=== PATIENT | male | born 1985 | race Caucasian/White ===

== ENCOUNTER 2025-06-25 13:07 | Inpatient (IN) | payer BC, OTHER ==
[~2025-06-25] VITALS: Ht 175.3 cm; Wt 98.0 kg
--- NOTE | 2025-06-25 13:56 | ED.PDOC ---
HPI (NEURO) HPI Comments This is a 40 year old male presenting to the ED with chief complaint of dizziness. Patient reports that while at work he has been experiencing dizziness with associated lightheadedness after doing physical activity at work for a few minutes before resolving. Patient relays that he has had multiple episodes while at work previously on other days. Patient notes his work wanted him to come in to be checked. Patient denies any numbness, weakness, tingling, chest pain, headache, or syncope. Chief Complaint: Dizziness Time Seen by MD: 13:56 Primary Care Provider: RUDY Reviewed Notes: Nurses Notes, Medications, Allergies Information Source: Patient Mode of Arrival: Ambulatory Severity: Moderate Dizziness/Weakness Severity: Does not affect activitie Timing: Hours Duration: Minutes Prehospital treatment: None Onset: At rest Circumstances: Spontaneous Symptoms: Faintness, Near syncope Before: Normal Past Medical History PAST MEDICAL HISTORY: Depression Surgical History: Denies all surgeries Family History Family History: Reviewed,noncontributory to illness, Unknown Social History Smoker: Cigarettes Alcohol: Occasionally Drugs: Denies Drug Use Lives In: Home Constitutional: denies: chills, diaphoresis, fatigue, fever, malaise, sweats, weakness, others EENTM: denies: blurred vision, double vision, ear bleeding, ear discharge, ear drainage, ear pain, ear ringing, eye pain, eye redness, hearing loss, mouth pain, mouth swelling, nasal discharge, nose bleeding, nose congestion, nose pain, photophobia, tearing, throat pain, throat swelling, voice changes, others Respiratory: denies: cough, hemoptysis, orthopnea, SOB at rest, shortness of breath, SOB with excertion, stridor, wheezing, others Cardiovascular: reports: lightheadedness; denies: chest pain, dizzy spells, diaphoresis, Dyspnea on exertion, edema, irregular heart beat, left arm pain, palpitations, PND, syncope, others Gastrointestinal: denies: abdomen distended, abdominal pain, blood streaked bowels, constipated, diarrhea, dysphagia, difficulty swallowing, hematemesis, melena, nausea, poor appetite, poor fluid intake, rectal bleeding, rectal pain, vomiting, others Genitourinary: denies: burning, dysuria, flank pain, frequency, hematuria, incontinence, penile discharge, penile sore, pain, testicle pain, testicle swelling, urgency, others Neurological: reports: dizziness; denies: fainting, headache, left sided numbness, left sided weakness, numbness, paresthesia, pre-existing deficit, right sided numbness, right sided weakness, seizure, speech problems, tingling, tremors, weakness, others Musculoskeletal: denies: back pain, gout, joint pain, joint swelling, muscle pain, muscle stiffness, neck pain, others Integumetry: denies: bruises, change in color, change in hair/nails, dryness, laceration, lesions, lumps, rash, wounds, others Allergic/Immunocompromised: denies: Difficulty Healing, Frequent Infections, Hives, Itching, others Hematologic/Lymphatic: denies: anemia, blood clots, easy bleeding, easy bruising, swollen glands, others Endocrine: denies: excessive hunger, excessive sweating, excessive thirst, excessive urination, flushing, intolerance to cold, intolerance to heat, unexplained weight gain, unexplained weight loss, others Psychiatric: denies: anxiety, bipolar disorder, depression, hopeless, panic disorder, schizophrenia, sleepless, suicidal, others All Other Systems: Reviewed and Negative Physical Exam General Appearance: No Apparent Distress, Normal HEENT: Normal ENT Inspection, Pharynx Normal, TMs Normal Neck: Full Range of Motion, Non-Tender, Normal, Normal Inspection Respiratory: Chest Non-Tender, Lungs Clear, No Accessory Muscle Use, No Respiratory Distress, Normal Breath Sounds Cardiovascular: No Edema, No JVD, No Murmur, No Gallop, Normal Peripheral Pulses, Regular Rate/Rhythm Breast Exam: Deferred Gastrointestinal: No Organomegaly, Non Tender, No Pulsatile Mass, Normal Bowel Sounds, Soft Genitalia: Deferred Pelvic: Deferred Rectal: Deferred Extremities: No calf tenderness, Normal capillary refill, Normal inspection, Normal range of motion, Non-tender, No pedal edema Musculoskeletal : Apperance: Normal Neurologic: Alert, artist representative II-XII nml as Tested, No Motor Deficits, Normal Affect, Normal Mood, No Sensory Deficits Cerebellar Function: Normal Reflexes: Normal Skin: Dry, Normal Color, Warm Lymphatic: No Adenopathy Was a procedure done? Was a procedure done?: No Differential Diagnosis (SZ) Seizure: Hyperventilation, CVA/TIA, Hypocalcemia, Hypoglycemia, Hyponatremia, Hypoxemia, Syncope, Epilepsy-Break Through, Epilepsy-Status CVA: Drug Overdose, Electrolyte Imbalance, Hypoglycemia, Hypoxemia General Weakness: Anemia, Dehydration, Electrolyte imbalance, Hypotension, TIA X-Ray, Labs, Meds, VS Vital Signs Date Time Temp Pulse Resp B/P (MAP) Pulse Ox O2 Delivery O2 Flow Rate FiO2 06/25/25 14:42 Room Air* 0 21 06/25/25 13:17 119 06/25/25 13:09 97.8 120 18 154/94 96 97.8 Lab Test 06/25/25 17:00 06/25/25 13:59 Range/Units Lactic Acid Level 2.9 *H 0.4-2.0 mmol/L White Blood Count 14.0 H 4.4-10.8 10^3/uL Red Blood Count 4.99 4.5-5.90 10^6/uL Hemoglobin 16.0 13.5-17.5 g/dL Hematocrit 45.2 41.0-53.0 % Mean Corpuscular Volume 90.5 80.0-100.0 fL Mean Corpuscular Hemoglobin 32.0 28.0-32.0 pg Mean Corpuscular Hemoglobin Concent 35.3 32.0-36.0 g/dL Red Cell Distribution Width 13.0 11.8-14.3 % Platelet Count 281 140-450 10^3/uL Mean Platelet Volume 8.8 6.9-10.8 fL Neutrophils (%) (Auto) 83.1 H 37.0-80.0 % Lymphocytes (%) (Auto) 10.7 10.0-50.0 % Monocytes (%) (Auto) 5.5 0.0-12.0 % Eosinophils (%) (Auto) 0.2 0.0-7.0 % Basophils (%) (Auto) 0.5 0.0-2.0 % Neutrophils # (Auto) 11.7 H 1.6-8.6 10 ^3/uL Lymphocytes # (Auto) 1.5 0.4-5.4 10 ^3/uL Monocytes # (Auto) 0.8 0-1.3 10 ^3/uL Eosinophils # (Auto) 0 0-0.8 10 ^3/uL Basophils # (Auto) 0.1 0-0.2 10 ^3/uL Nucleated Red Blood Cells 0.1 % Sodium Level 139 136-145 mmol/L Potassium Level 4.0 3.5-5.1 mmol/L Chloride Level 106 98-107 mmol/L Carbon Dioxide Level 24 20-31 mmol/L Anion Gap 9 5-15 Blood Urea Nitrogen 7 L 9-23 mg/dL Creatinine 0.99 0.700-1.30 mg/dL Glomerular Filtration Rate Calc 99 >90 mL/min BUN/Creatinine Ratio 7.1 L 10.0-20.0 Serum Glucose 91 74-106 mg/dL Calcium Level 9.5 8.7-10.4 mg/dL Plasma/Serum Blood Alcohol 4.4 <10 mg/dL Current Medications Medications (Trade) Dose Ordered Sig/Sara Route Start Time Stop Time Status Last Admin Lactated Ringer's 2,100 ml @ 2,100 mls/hr ONCE ONCE IV 06/25/25 16:45 06/25/25 17:44 DC 06/25/25 17:04 Cefepime HCl 50 ml @ 50 mls/hr ONCE ONCE IV 06/25/25 16:49 06/25/25 17:48 DC 06/25/25 17:04 Time of 1ST Reevaluation: 14:55 Reevaluation 1ST: Unchanged Patient Education/Counseling: Diagnosis, Treatment, Prognosis, Need For Follow Up Family Education/Counseling: No Family Present Departure 1 Departure Time of Disposition: 19:52 Impression: Primary Impression: Pneumonia Additional Impression: Sepsis Disposition: 09 ADMITTED INPATIENT Admit to: Tele Condition: Serious Discharged With: Self Critical Care Note Critical Care Time?: Yes (55 min-critical care time only) Critical care comment: due to concerns for patient's condition deteriorating, the care required my highest level of attention and readiness to intervene. i assessed the patient's condition, ordered the proper tests and treatments, reassessed for response and reviewed the results. i communicated with medical personnel and formulated a plan of care. total critical care time does not include any procedures Stability Stability form required: No Heart Score Heart Score: Heart Score Response (Comments) Value History N/A 0 EKG N/A 0 Age N/A 0 Risk Factors N/A 0 Troponin N/A 0 Total 0 I personally scribed for MILI REHMAN MD ([email or web address]) on 06/25/25 at 13:56. Electronically submitted by Naren Villa ([email or web address]). MILI REHMAN MD Jun 25, 2025 13:56
[2025-06-25 14:11] LABS: Hematocrit 45.2 % (41.0-53.0); Hemoglobin 16.0 g/dL (13.5-17.5); Mean Corpuscular Hemoglobin 32.0 pg (28.0-32.0); Mean Corpuscular Volume 90.5 fL (80.0-100.0); Nucleated Red Blood Cells % 0.1 %
[2025-06-25 14:18] LABS: Chloride 106 mmol/L (98-107); Potassium 4.0 mmol/L (3.5-5.1); Sodium 139 mmol/L (136-145)
[2025-06-25 14:19] LABS: Anion Gap 9 (5-15); Calcium 9.5 mg/dL (8.7-10.4); Carbon Dioxide 24 mmol/L (20-31)
[2025-06-25 14:24] LABS: BUN/Creatinine Ratio 7.1 (10.0-20.0); Glucose 91 mg/dL (74-106)
[2025-06-25 14:27] LABS: Blood Urea Nitrogen 7 mg/dL (9-23)
--- NOTE | 2025-06-25 16:06 | DVH ---
CHEST RADIOGRAPH Indication: dizziness Technique: XY CHEST XRAY 1 VIEW Comparison: None FINDINGS: The cardiac silhouette is unremarkable. The lungs demonstrate left basilar airspace opacities. The pu lmonary vasculature is prominent. There is no pleural effusion. There is no pneumothorax. IMPRESSION: Mild pulmonary vascular congestion. Left basilar airspace opacities
[2025-06-25] MEDS: CEFEPIME 1GM/50ML 50 ML IV ONE (17:04)
[2025-06-25] MEDS: LACTATED RINGER'S 2,100 ML IV ONE (17:04)
[2025-06-25] MEDS: LACTATED RINGER'S 1,000 ML IV SCH (17:15)
[2025-06-25] MEDS ORDERED: VANCOMYCIN 1GM/250ML KIT 250 ML IV SCH (17:15)
--- NOTE | 2025-06-25 17:52 | DVHHPRES ---
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 Patient denied any recent history of fever, chills, abdominal pain, diarrhea, nausea or vomiting. He reported that in the last month he has had similar episode about 2 times but did not seek any medical attention. Patient did not report to be feeling any sensory or motor weakness at that time and denied headache, blurred vision, slurred speech, facial numbness or weakness, tinnitus, spinning sensation. Patient then came to the ER for further evaluation. On arrival to the ER patient was noted to be tachycardic and initial labs showed elevated white count with left shift. Past medical history: None Surgical history: None Social history: Patient reports drinking once a week and smokes about 10-15 cigarettes per day for the last 25 years, no drug use Home medications: None Review of Systems Review of Systems Patient seen and examined at the bedside Does not report of any dizziness while being examined, no blurred vision, no motor or sensory weakness, no facial weakness Reported that he has noticed an abscess in his middle back area which has recently grown a little in size Allergies: Coded Allergies: NO KNOWN ALLERGIES (Unverified , 03/24/10) Medications Current Medications Medications Dose Ordered Sig/Sara Route Start Time Stop Time Status Last Admin Dose Admin Cefepime HCl 50 ml @ 12.5 mls/hr Q8H IV 06/26/25 01:00 Exam Vital Signs Vital Signs Date Time Temp Pulse Resp B/P (MAP) Pulse Ox O2 Delivery O2 Flow Rate FiO2 06/25/25 14:42 Room Air* 0 21 06/25/25 13:17 119 06/25/25 13:09 97.8 18 154/94 96 97.8 Exam Gen - no pallor, no icterus, no cyanosis, no peripheral edema . Skin - Patients skin is warm and dry. 3 X 3 cm area of fluctuant mass palpated in the upper middle back with the overlying erythema, no tenderness HEENT - normocephalic, atraumatic, dry mucous membranes. Neck - full ROM, no LAD, no JVD Pulmonary - B/L equal breath sounds, no crackles, no wheezing, no stridor. cardiovascular - regular S1,S2 heard, no added sounds, no murmurs heard. GI - soft, nontender abdomen. no hepatospleenomegaly. Bowel sounds normoactive Neurological - Patient is A/O X 3 . Bilateral upper extremity strength 5/5, bilateral lower extremity strength 5/5, no facial droop, normal speech, no tremor, no sensory deficiets. Labs/Xrays Labs Test 06/25/25 17:00 06/25/25 13:59 Range/Units White Blood Count 14.0 H 4.4-10.8 10^3/uL Red Blood Count 4.99 4.5-5.90 10^6/uL Hemoglobin 16.0 13.5-17.5 g/dL Hematocrit 45.2 41.0-53.0 % Mean Corpuscular Volume 90.5 80.0-100.0 fL Mean Corpuscular Hemoglobin 32.0 28.0-32.0 pg Mean Corpuscular Hemoglobin Concent 35.3 32.0-36.0 g/dL Red Cell Distribution Width 13.0 11.8-14.3 % Platelet Count 281 140-450 10^3/uL Mean Platelet Volume 8.8 6.9-10.8 fL Neutrophils (%) (Auto) 83.1 H 37.0-80.0 % Lymphocytes (%) (Auto) 10.7 10.0-50.0 % Monocytes (%) (Auto) 5.5 0.0-12.0 % Eosinophils (%) (Auto) 0.2 0.0-7.0 % Basophils (%) (Auto) 0.5 0.0-2.0 % Neutrophils # (Auto) 11.7 H 1.6-8.6 10 ^3/uL Lymphocytes # (Auto) 1.5 0.4-5.4 10 ^3/uL Monocytes # (Auto) 0.8 0-1.3 10 ^3/uL Eosinophils # (Auto) 0 0-0.8 10 ^3/uL Basophils # (Auto) 0.1 0-0.2 10 ^3/uL Nucleated Red Blood Cells 0.1 % Sodium Level 139 136-145 mmol/L Potassium Level 4.0 3.5-5.1 mmol/L Chloride Level 106 98-107 mmol/L Carbon Dioxide Level 24 20-31 mmol/L Anion Gap 9 5-15 Blood Urea Nitrogen 7 L 9-23 mg/dL Creatinine 0.99 0.700-1.30 mg/dL Glomerular Filtration Rate Calc 99 >90 mL/min BUN/Creatinine Ratio 7.1 L 10.0-20.0 Serum Glucose 91 74-106 mg/dL Calcium Level 9.5 8.7-10.4 mg/dL Plasma/Serum Blood Alcohol 4.4 <10 mg/dL SEPSIS Sepsis Screen Date sepsis recognized/suspect: Jun 25, 2025 Time Sepsis recognized/suspect: 1308 Recent Procedure: No On Antibiotic Therapy: No Respiratory Rate >20: No Heart Rate >90: Yes Temp<36 C (96.8 F) or >38.3 C: No SBP <90 or MAP <65 mmHG: No New Acute Mental Status Change: No Is the patient on CPAP, BIPAP,: No Physician Orders Electrocardigram (06/25/25 13:24) Chest Xray 1 View (06/25/25 15:35) Drug Screen (06/25/25 15:35) Urinalysis (06/25/25 16:43) Accucheck (06/25/25 16:43) Lactated Ringer's (06/25/25 16:45) Blood Culture (06/25/25 16:43) Lactic Acid W/ Reflex Order (06/25/25 18:00) Lactic Acid W/ Reflex Order (06/25/25 20:00) Notify Md If Map <65 Or Bp<90 (06/25/25 16:43) If Map<65 Start Vasopressor (06/25/25 16:43) Sepsis Reassesment After Fluid (06/25/25 17:43) Cefepime 1gm/50ml (Maxipime 1gm/50ml) (06/25/25 16:49) Cefepime 1gm/50ml (Maxipime 1gm/50ml) (06/26/25 01:00) Admit (06/25/25 17:07) Oxygen By Nasal Cannula (06/25/25 17:07) Stat Ekg For Chest Pain (06/25/25 17:07) Notify Md Of Changes From Base (06/25/25 17:07) Urinalysis (06/25/25 17:07) Drug Screen (06/25/25 17:07) Vancomycin (06/25/25 17:15) Vancomycin (06/26/25 09:00) Vital Signs Date Time Temp Pulse Resp B/P (MAP) Pulse Ox O2 Delivery O2 Flow Rate FiO2 06/25/25 14:42 Room Air* 0 21 06/25/25 13:17 119 06/25/25 13:09 97.8 120 18 154/94 96 97.8 Laboratory Tests Test 06/25/25 13:59 06/25/25 17:00 White Blood Count 14.0 10^3/uL (4.4-10.8) H Lactic Acid Level Pending Medications Medications Dose Ordered Sig/Sara Route Start Time Stop Time Status Last Admin Dose Admin Cefepime HCl 50 ml @ 50 mls/hr ONCE ONCE IV 06/25/25 16:49 06/25/25 17:48 06/25/25 17:04 50 MLS/HR Lactated Ringer's 2,100 ml @ 2,100 mls/hr ONCE ONCE IV 06/25/25 16:45 06/25/25 17:44 06/25/25 17:04 2,100 MLS/HR Assessment/Plan Assessment/Plan Dizziness likely from dehydration/sepsis Sepsis likely due to skin abscess - IV antibiotics vancomycin and cefepime - IV fluid - blood cultures - monitor CBC - lactic acid Chronic tobacco use - counseled on cessation of smoking for more than 15 minutes PUD prophylaxis: Protonix Goals of care discussed with the patient for over 23 minutes. Full code Time spent: 41 minutes Plan discussed with Dr. Agudelo Plan discussed with: Patient, Other (RN Claudio) My Orders Orders - SHANIQUA MARKS RESIDENT Procedure Category Date Status Time Admit ADMIT 06/25/25 Verified 17:07 Oxygen By Nasal RT 06/25/25 Verified Cannula 17:07 Stat Ekg For Chest DESTINEE 06/25/25 Verified Pain 17:07 Notify Of Changes DESTINEE 06/25/25 Verified From Base 17:07 Urinalysis LAB 06/25/25 Verified 17:07 Drug Screen LAB 06/25/25 Verified 17:07 Vancomycin PHA 06/25/25 Verified 17:15 Vancomycin PHA 06/26/25 Verified 09:00 Date of Service: Jun 25, 2025 Billing Provider: POPEYE AGUEDLO MD Common Visit Codes: [id number] INP/OBS CARE (HIGH) Secondary Visit Codes: [id number] CARE PLAN 30 MINUTES SHANIQUA MARKS RESIDENT Jun 25, 2025 17:52
[2025-06-25 18:29] LABS: Lactic Acid w/Reflex 2.9 mmol/L (0.4-2.0)
[2025-06-25] MEDS: PANTOPRAZOLE 40 MG TAB PO ONE (19:51)
[2025-06-25 20:12] LABS: COVID19 ANTIGEN SOFIA FIA NEGATIVE (NEGATIVE)
--- NOTE | 2025-06-25 20:43 | ECG ---
[facility], [place] Test Date: 2025-06-25 Test Time: 13:17:03 Pat Name: RUI HUTCHINSON Department: Room: [address] [place] [address] Gender: M Clay Modeler: RADHA : 1985 Requested By: MILI REHMAN Order Number: [id number] Reading MD: Measurements Intervals [place] Rate: 119 P: 63 CO: 186 QRS: 86 QRSD: 92 T: -63 QT: 306 QTc: 431 Interpretive Statements Sinus tachycardia Probable left atrial enlargement Borderline repolarization abnormality Please click the below link to view image of tracing.
[2025-06-25 22:02] VITALS: BP 127/90; PULSE 89; RESP 18; RESP 20; TEMP 98; O2SAT 98
[2025-06-25 22:12] VITALS: BP 127/90; PULSE 89; RESP 20; TEMP 98.6; O2SAT 98
[2025-06-25] MEDS: VANCOMYCIN 1GM/250ML KIT 250 ML IV SCH (23:00)
[2025-06-26 01:00] VITALS: BP 130/89; PULSE 80; RESP 18; TEMP 98.4; O2SAT 99
[2025-06-26] MEDS: CEFEPIME 1GM/50ML 50 ML IV SCH (01:18)
[2025-06-26 05:00] VITALS: BP 120/71; PULSE 85; RESP 18; TEMP 98.8; O2SAT 97
[2025-06-26] MEDS: PANTOPRAZOLE 40 MG TAB PO SCH (06:45)
[2025-06-26 07:18] LABS: Hematocrit 42.4 % (41.0-53.0); Hemoglobin 15.0 g/dL (13.5-17.5); Mean Corpuscular Hemoglobin 32.2 pg (28.0-32.0); Mean Corpuscular Volume 91.0 fL (80.0-100.0); Nucleated Red Blood Cells % 0.2 %
[2025-06-26 08:00] VITALS: BP 94/58; PULSE 84; RESP 16; TEMP 97.8; O2SAT 96
[2025-06-26 08:49] LABS: Alanine Aminotransferase 25 U/L (7-40); Albumin 4.0 g/dL (3.2-4.8); Alkaline Phosphatase 102 U/L (46-116); Anion Gap 10 (5-15); BUN/Creatinine Ratio 8.8 (10.0-20.0); Blood Urea Nitrogen 8 mg/dL (9-23); Calcium 8.8 mg/dL (8.7-10.4); Carbon Dioxide 23 mmol/L (20-31); Chloride 111 mmol/L (98-107); Glucose 88 mg/dL (74-106); Potassium 4.2 mmol/L (3.5-5.1); Sodium 144 mmol/L (136-145); Total Protein 6.5 g/dL (5.7-8.2)
[2025-06-26 08:50] LABS: Bilirubin, Total 0.4 mg/dL (0.2-1.0)
[2025-06-26] MEDS ORDERED: VANCOMYCIN PER PHARMACY 0 MG IV SCH (09:00)
[2025-06-26 13:30] VITALS: BP 128/82; PULSE 85; RESP 16; TEMP 97.8; O2SAT 96
--- NOTE | 2025-06-26 18:53 | DVHDSRES ---
Discharge Summary Date of Admission Resident Creating Document: ASAEL ASHRAF Jun 25, 2025 at 17:07 Date of Discharge: Jun 26, 2025 Admitting Diagnosis Sepsis due to back abscess Labs/Diagnostic Data: Laboratory Results Test 06/26/25 06:37 06/25/25 19:11 06/25/25 18:00 06/25/25 13:59 White Blood Count 7.0 10^3/uL (4.4-10.8) Red Blood Count 4.67 10^6/uL (4.5-5.90) Hemoglobin 15.0 g/dL (13.5-17.5) Hematocrit 42.4 % (41.0-53.0) Mean Corpuscular Volume 91.0 fL (80.0-100.0) Mean Corpuscular Hemoglobin 32.2 pg (28.0-32.0) Mean Corpuscular Hemoglobin Concent 35.4 g/dL (32.0-36.0) Red Cell Distribution Width 13.0 % (11.8-14.3) Platelet Count 251 10^3/uL (140-450) Mean Platelet Volume 9.1 fL (6.9-10.8) Neutrophils (%) (Auto) 63.9 % (37.0-80.0) Lymphocytes (%) (Auto) 25.6 % (10.0-50.0) Monocytes (%) (Auto) 8.9 % (0.0-12.0) Eosinophils (%) (Auto) 1.2 % (0.0-7.0) Basophils (%) (Auto) 0.4 % (0.0-2.0) Neutrophils # (Auto) 4.5 10 ^3/uL (1.6-8.6) Lymphocytes # (Auto) 1.8 10 ^3/uL (0.4-5.4) Monocytes # (Auto) 0.6 10 ^3/uL (0-1.3) Eosinophils # (Auto) 0.1 10 ^3/uL (0-0.8) Basophils # (Auto) 0 10 ^3/uL (0-0.2) Nucleated Red Blood Cells 0.2 % Sodium Level 144 mmol/L (136-145) Potassium Level 4.2 mmol/L (3.5-5.1) Chloride Level 111 mmol/L (98-107) Carbon Dioxide Level 23 mmol/L (20-31) Anion Gap 10 (5-15) Blood Urea Nitrogen 8 mg/dL (9-23) Creatinine 0.91 mg/dL (0.700-1.30) Glomerular Filtration Rate Calc 110 mL/min (>90) BUN/Creatinine Ratio 8.8 (10.0-20.0) Serum Glucose 88 mg/dL (74-106) Calcium Level 8.8 mg/dL (8.7-10.4) Total Bilirubin 0.4 mg/dL (0.2-1.0) Aspartate Amino Transferase (AST) 21 U/L (13-40) Alanine Aminotransferase (ALT) 25 U/L (7-40) Alkaline Phosphatase 102 U/L (46-116) Total Protein 6.5 g/dL (5.7-8.2) Albumin 4.0 g/dL (3.2-4.8) Lactic Acid Level 1.6 mmol/L (0.4-2.0) Influenza Type A Antigen Negative (Negative) Influenza Type B Antigen Negative (Negative) SARS-CoV-2 Antigen (Rapid) Negative (NEGATIVE) Plasma/Serum Blood Alcohol 4.4 mg/dL (<10) Other Laboratory Tests 06/26/25 06:37 Brief Hx & Hospital Course: HPI: Patient is a 40-year-old male with no significant bout medical history presented to the ED with a chief complaint of dizziness earlier in the morning while he was at work, 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 Patient denied any recent history of fever, chills, abdominal pain, diarrhea, nausea or vomiting. He reported that in the last month he has had similar episode about 2 times but did not seek any medical attention. Patient did not report to be feeling any sensory or motor weakness at that time and denied headache, blurred vision, slurred speech, facial numbness or weakness, tinnitus, spinning sensation. Patient then came to the ER for further evaluation. On arrival to the ER patient was noted to be tachycardic and initial labs showed elevated white count with left shift. Past medical history: None Surgical history: None Social history: Patient reports drinking once a week and smokes about 10-15 cigarettes per day for the last 25 years, no drug use Home medications: None Brief hospital course: Initial evaluation revealed patient was septic, dizziness was attributed to sepsis initially. However the presyncope could be due to dehydration as well as the patient was working outdoors. The patient was treated with IV fluid, cefepime and vancomycin given his sepsis.. Chest x-ray and urinalysis revealed no abnormality. Blood culture reveals no growth at 24 hours. The back sebaceous cyst was possibly infected, there was no pain however. His symptoms of dizziness improved with IV fluid. Lactic acid and WBC was downtrended to normal. The patient was advised to follow up with PCP, [facility]. The patient was counseled on cessation of tobacco On the day of discharge, the patient was hemodynamically stable, verbalized understanding of the diagnosis, treatment and discharge plan. Exam Gen - no pallor, no icterus, no cyanosis, no peripheral edema . Skin - Patients skin is warm and dry. 3 X 3 cm area non fluctuating, possibly sebaceous cyst at the the back with the overlying erythema, no tenderness HEENT - normocephalic, atraumatic, dry mucous membranes. Neck - full ROM, no LAD, no JVD Pulmonary - B/L equal breath sounds, no crackles, no wheezing, no stridor. cardiovascular - regular S1,S2 heard, no added sounds, no murmurs heard. GI - soft, nontender abdomen. no hepatospleenomegaly. Bowel sounds normoactive Neurological - Patient is A/O X 3 . Bilateral upper extremity strength 5/5, bilateral lower extremity strength 5/5, no facial droop, normal speech, no tremor, no sensory deficiets. Operations or Procedures PATIENT: RUI HUTCHINSON ACCT: [id number] UNIT: [id number] : 1985 LOC: ER ROOM / BED: / AGE / SEX: 40 / M ADM STATUS: REG ER SERVICE 1535 ORDERING PHYSICIAN: MILI REHMAN MD PROCEDURE(s): CXR1 - CHEST XRAY 1 VIEW REASON: dizziness ORDER NUMBER(s): [id number], ACCESSION NUMBER(s): [id number] CHEST RADIOGRAPH Indication: dizziness Technique: XY CHEST XRAY 1 VIEW Comparison: None FINDINGS: The cardiac silhouette is unremarkable. The lungs demonstrate left basilar airspace opacities. The pulmonary vasculature is prominent. There is no pleural effusion. There is no pneumothorax. IMPRESSION: Mild pulmonary vascular congestion. Left basilar airspace opacities Condition at Discharge: Stable Final Diagnosis/Problems List SIRS Pre-syncope likely due to heat exhaustion Pre-syncope likely due to dehydration chronic tobacco use Discharge Disposition: Home Discharge Instruct/Medications Diet: Regular Activity: No Restrictions, As Tolerated Follow Up/Referral: fu with pcp in 1 week Medications: lifestyle modifications No Active Prescriptions or Reported Meds Discharge Statement: "Patient was advised to return to the ER or call 911 if any headaches, dizziness, shortness of breath, chest pain, abdominal pain, bleeding, fevers, or worsening of medical condition. Patient was counseled about treatment plan, medications, possible side effects, patientverbalized understanding. All questions were answered to the best of my ability. This discharge took greater then 30 minutes in planning, reviewing documentation, counseling the patient, and discussing with other team members." ASSESSMENT ASSESSMENT Assessment dehydration ASAEL ASHRAF RESIDENT Jun 26, 2025 18:53
== END 2025-06-26 14:55 | disposition home or self-care (01) | DRG 871 ==
LOC: ER 13:10 → OVERFLOW 17:07 → WEST WING 21:58
PROVIDERS: ADMIT Internal Medicine Geriatric Medicine; ATTEND Internal Medicine Geriatric Medicine
DX: A41.9 Sepsis, unspecified organism (principal); J18.9 Pneumonia, unspecified organism; E86.0 Dehydration; F32.A Depression, unspecified; F17.210 Nicotine dependence, cigarettes, uncomplicated; Z20.822 Contact with and (suspected) exposure to COVID-19; T67.5XXA Heat exhaustion, unspecified, initial encounter; X58.XXXA Exposure to other specified factors, initial encounter; Y93.89 Activity, other specified; Y92.89 Other specified places as the place of occurrence of the external cause; Y99.8 Other external cause status
CPT/HCPCS: 36415; 71045; 80048; 80053; 80320; 82565; 83605; 85025; 87040; 87426; 87804; 93005; 96365; G0378